=== PATIENT | female | born 1970 | race Hispanic/Latino ===

== ENCOUNTER 2018-02-26 11:04 | Emergency (ER) | payer MEDICAID, OTHER ==
[2018-02-26] MEDS ORDERED: METOCLOPRAMIDE 10 MG TABLET ONE (12:20)
[2018-02-26] MEDS ORDERED: ACETAMINOPHEN 325 MG TAB ONE (12:21)
[2018-02-26 12:27] LABS: BASOPHILS % (AUTO) 0.9 % (0.0-5.0); EOSINOPHILS % (AUTO) 3.9 % (0.0-8.0); HEMATOCRIT 37.4 % (36-48); LYMPHOCYTES % (AUTO) 24.8 % (21.0-51.0); MEAN CORPUSCULAR HEMOGLOBIN 28.5 pg (27.0-33.0); MEAN CORPUSCULAR HGB CONC 33.1 g/dL (32.0-36.0); MONOCYTES % (AUTO) 6.2 % (3.0-13.0); NEUTROPHILS % (AUTO) 64.2 % (40.0-77.0); PLATELET COUNT (AUTO) 188 K/uL (130-400); RED BLOOD CELL COUNT(AUTO) 4.35 MIL/uL (4.00-5.50); RED CELL DISTRIBUTION WIDTH 12.8 % (11.0-15.5); WHITE BLOOD COUNT (AUTO) 4.7 K/uL (4.8-10.8)
[2018-02-26 12:32] LABS: CREATININE 0.9 mg/dL (0.5-1.5); POTASSIUM 3.6 mmol/L (3.5-5.1)
[2018-02-26 12:37] LABS: ALBUMIN 3.5 g/dL (3.5-5.0); BILIRUBIN,TOTAL 0.5 mg/dL (0.2-1.0); TOTAL PROTEIN, SERUM 7.7 g/dL (6.0-8.3)
[2018-02-26 12:47] LABS: APPEARANCE,URINE Clear (CLEAR); BILIRUBIN,URINE Negative (NEGATIVE); COLOR,URINE Yellow (YELLOW); GLUCOSE, URINE (UA) Negative (NEGATIVE); KETONES,URINE Negative (NEGATIVE); LEUKOCYTE ESTERASE ,URINE Small (NEGATIVE); NITRATE,URINE Negative (NEGATIVE); OCCULT BLOOD,URINE Negative (NEGATIVE); PH,URINE 6.5 (5.0-8.0); PROTEIN,URINE Negative (NEGATIVE); UROBILINOGEN,URINE 0.2 mg/dL (0.2-1.0)
[2018-02-26 13:09] LABS: BACTERIA,URINE Rare /HPF (None Seen); RBC,URINE None Seen /HPF (0-1); SQUAMOUS EPITHELIAL CELL,UR 0-2 /HPF (0-2); WBC,URINE 0-1 /HPF (0-1)
== END 2018-02-26 13:46 | disposition home or self-care (01) ==
LOC: EDH 11:04
DX: R51 Headache (principal); R11.0 Nausea; H53.149 Visual discomfort, unspecified; I10 Essential (primary) hypertension
CPT/HCPCS: 36415; 70450; 80053; 81001; 84484; 85025; 93005

== ENCOUNTER 2019-03-31 13:06 | Inpatient (IN) | payer MEDICAID, OTHER ==
[~2019-03-31] VITALS: Ht 157.5 cm; Wt 120.3 kg
[2019-03-31 13:36] LABS: BASOPHILS % (AUTO) 0.5 % (0.0-5.0); EOSINOPHILS % (AUTO) 1.1 % (0.0-8.0); HEMATOCRIT 41.6 % (36-48); LYMPHOCYTES % (AUTO) 7.3 % (21.0-51.0); MEAN CORPUSCULAR HEMOGLOBIN 29.8 pg (27.0-33.0); MEAN CORPUSCULAR HGB CONC 34.5 g/dL (32.0-36.0); MEAN CORPUSCULAR VOLUME 86.3 fL (79-99); MONOCYTES % (AUTO) 4.3 % (3.0-13.0); NEUTROPHILS % (AUTO) 86.8 % (40.0-77.0); NUCLEATED RED BLOOD CELLS 0.1 % (0.0-0.19); PLATELET COUNT (AUTO) 198 K/uL (130-400); RED BLOOD CELL COUNT(AUTO) 4.81 MIL/uL (4.00-5.50); RED CELL DISTRIBUTION WIDTH 12.7 % (11.0-15.5); WHITE BLOOD COUNT (AUTO) 9.3 K/uL (4.8-10.8)
[2019-03-31 13:42] LABS: CREATININE 0.9 mg/dL (0.5-1.5); POTASSIUM 4.1 mmol/L (3.5-5.1)
[2019-03-31 13:48] LABS: ALBUMIN 3.9 g/dL (3.5-5.0); BILIRUBIN,TOTAL 0.8 mg/dL (0.2-1.0); TOTAL PROTEIN, SERUM 8.1 g/dL (6.0-8.3)
[2019-03-31] MEDS ORDERED: ONDANSETRON HCL 4 MG/2 ML VIAL ONE ×2 (14:22→15:36)
[2019-03-31] MEDS ORDERED: SODIUM CHLORIDE 0.9% 1000ML 1,000 ML IV ONE (14:22)
[2019-03-31] MEDS ORDERED: LORAZEPAM 2 MG/ML 1 ML VIAL ONE (14:24)
[2019-03-31 14:52] LABS: APPEARANCE,URINE Clear (CLEAR); BILIRUBIN,URINE Negative (NEGATIVE); COLOR,URINE Yellow (YELLOW); GLUCOSE, URINE (UA) Negative (NEGATIVE); KETONES,URINE Negative (NEGATIVE); LEUKOCYTE ESTERASE ,URINE Moderate (NEGATIVE); NITRATE,URINE Negative (NEGATIVE); OCCULT BLOOD,URINE Negative (NEGATIVE); PH,URINE 5.5 (5.0-8.0); PROTEIN,URINE Negative (NEGATIVE)
[2019-03-31 15:03] LABS: BACTERIA,URINE Moderate /HPF (None Seen); RBC,URINE 0-1 /HPF (0-1)
[2019-03-31 15:04] LABS: SQUAMOUS EPITHELIAL CELL,UR Few /HPF (0-2)
[2019-03-31] MEDS ORDERED: ZOSYN 3.375GM+NS 50ML 50 ML IV ONE (15:36)
[2019-03-31] MEDS ORDERED: SODIUM CHLORIDE 0.9% 0 ML IV ONE (15:37)
[2019-03-31] MEDS ORDERED: GADODIAMIDE 10 MMOL/20 ML VIAL IV ONE (15:47)
[2019-03-31] MEDS ORDERED: ACETAMINOPHEN 325 MG TAB PO PRN ×2 (16:15)
[2019-03-31] MEDS ORDERED: HYDRALAZINE HCL 20 MG/ML VIAL IV PRN (16:15)
[2019-03-31 16:43] LABS: HEMOGLOBIN A1C 5.5 % (4.0-6.0)
[2019-03-31 18:00] VITALS: BP 149/91
--- NOTE | 2019-03-31 18:00 | NUR ---
ER ADMIT TO ROOM 328. ASSESSMENT DONE. NPO, STARTED ON IVF, KEEPS DOSING OFF. C/O OF SEVERE NAUSEA, NO EMESIS, VERY LITTLE HISTORY. TAKES 1 BP MED. DAUGHTER WILL BRING IN.
[2019-03-31] MEDS: SODIUM CHLORIDE 0.9% 1000ML 1,000 ML IV SCH (18:30)
[2019-03-31 20:00] VITALS: BP 181/94
--- NOTE | 2019-03-31 20:30 | NUR ---
AWARE OF MRCP RESULTS STATED TO JE PATIENT FOR ERCP VINNY BUSTAMANTE AWARE
[2019-03-31 20:51] VITALS: BP 144/73
[2019-03-31 21:10] LABS: BASOPHILS % (AUTO) 0.4 % (0.0-5.0); EOSINOPHILS % (AUTO) 0.3 % (0.0-8.0); HEMATOCRIT 37.6 % (36-48); LYMPHOCYTES % (AUTO) 11.1 % (21.0-51.0); MEAN CORPUSCULAR HEMOGLOBIN 30.1 pg (27.0-33.0); MEAN CORPUSCULAR HGB CONC 34.7 g/dL (32.0-36.0); MEAN CORPUSCULAR VOLUME 86.6 fL (79-99); MONOCYTES % (AUTO) 5.3 % (3.0-13.0); NEUTROPHILS % (AUTO) 82.9 % (40.0-77.0); PLATELET COUNT (AUTO) 179 K/uL (130-400); RED BLOOD CELL COUNT(AUTO) 4.34 MIL/uL (4.00-5.50); RED CELL DISTRIBUTION WIDTH 12.8 % (11.0-15.5); WHITE BLOOD COUNT (AUTO) 7.6 K/uL (4.8-10.8)
[2019-03-31 21:26] LABS: POTASSIUM 3.8 mmol/L (3.5-5.1)
[2019-03-31 21:27] LABS: INR 1.01 (0.85-1.15); PROTHROMBIN TIME 10.6 SEC (9.6-11.6)
[2019-03-31] MEDS ORDERED: LOSA50TA64 PO (22:21)
[2019-03-31] MEDS: ZOSYN 3.375GM+NS 50ML 50 ML IV SCH (22:45)
[2019-03-31] MEDS: FAMOTIDINE/PF 20 MG/2 ML VIAL IV SCH (22:46)
[2019-04-01] VITALS (24 sets, daily range): BP systolic 109–163; BP diastolic 58–98
[2019-04-01] MEDS: ZOSYN 3.375GM+NS 50ML 50 ML IV SCH ×3 (06:03→22:46)
[2019-04-01] MEDS ORDERED: INDOMETHACIN 50 MG SUPP.RECT RC SCH (10:30)
[2019-04-01] MEDS ORDERED: IOHEXOL-350 50ML VIAL IV ONE (11:25)
[2019-04-01] MEDS ORDERED: SUCCINYLCHOLINE 200MG/10ML SYR ONE (11:35)
[2019-04-01] MEDS ORDERED: FENTANYL CITRATE PF 50 MCG/1 ML 2ML VIAL ONE (11:36)
[2019-04-01] MEDS: ONDANSETRON HCL 4 MG/2 ML VIAL IV PRN ×2 (13:23→19:14)
[2019-04-01] MEDS: FAMOTIDINE/PF 20 MG/2 ML VIAL IV SCH (14:34)
--- NOTE | 2019-04-01 15:05 | NUR ---
PER DR. CARPENTER UNSUCCESSFUL ERCP CALL SX FOR IOC
--- NOTE | 2019-04-01 15:06 | NUR ---
DR. ROY AWARE OF FAILED ERCP, STATES WILL ROUND TONIGHT.
--- NOTE | 2019-04-01 15:30 | NUR ---
PER PACU NURSE CATA, PT COUGHING BLOOD AND HE WILL MONITOR BLEEDING.
--- NOTE | 2019-04-01 15:50 | NUR ---
ORNITHOLOGY TEACHER MOSES AWARE OF PT W/ LGI BLEED ORDERS ENTERED.
--- NOTE | 2019-04-01 15:53 | NUR ---
PT HAVING DARK RED LOOSE STOOLS ORDERS ENTERED.
--- NOTE | 2019-04-01 16:07 | NUR ---
MEETA STATES WILL SPEAK W/MANUELA RE; SX NO ORDERS AT THIS TIME, STATES HE WILL ALSO WAIT ON H/H AND CALL FOR ANY ORDERS EITHER TODAY OR TOMORROW.
[2019-04-01 16:08] LABS: HEMATOCRIT 31.8 % (36-48)
--- NOTE | 2019-04-01 16:13 | NUR ---
PT REMAINS HAVING BLOODY STOOLS, DR. CARPENTER PAGED H/H OF 10.7/21.8 FROM A 13.0/37.6. PER TECHNOLOGIES DIVISION CHAIR WILL CALL BACK.
--- NOTE | 2019-04-01 16:23 | NUR ---
SEPIDEH-FROM PAULINE'S OFFICE CALLED BACK RE; GI BLEED STATES FOR NOW JUST MONITOR PT CALL ME BACK WITH 10PM H/H LEVELS OR IF THERE IS A SIGNIFICANT CHANGE IN PATIENT STATUS OR V/S, H/H. AT PAGER [phone].
--- NOTE | 2019-04-01 18:44 | NUR ---
tom note met with patient and states resides athome with 14 yo son, states she independent with adls and ambulation, no dme. she drives. states her adult daughter Malinda assists as needed. she is caring for her 14yo son at home. states no dc needs. she goes to [facility] in [place] for md and meds. also has applied at the [facility] here in [place], states no dc needs. provided number to [facility] for possible suresh assist and provided list of local clinics and med assist programs. dc plan [place]. Addendum: 04/01/19 at 1847 by SANTIAGO MALHOTRA CM Amended: Links added.
[2019-04-01] MEDS: MEPERIDINE-PF 25 MG/ML SYG IV PRN (19:21)
[2019-04-01] MEDS ORDERED: PANTOPRAZOLE 40 MG/VIAL IVP SCH (21:00)
[2019-04-01] MEDS ORDERED: MORPHINE SULFATE 4 MG/1ML SYG ONE (22:35)
[2019-04-01] MEDS ORDERED: MORPHINE SULFATE 4 MG/1ML SYG IV PRN (22:45)
[2019-04-01] MEDS: SODIUM CHLORIDE 0.9% 1000ML 1,000 ML IV SCH (22:46)
[2019-04-02] VITALS (26 sets, daily range): BP systolic 121–163; BP diastolic 57–99
[2019-04-02] MEDS: MEPERIDINE-PF 25 MG/ML SYG IV PRN (01:23)
[2019-04-02 05:33] LABS: BASOPHILS % (AUTO) 0.2 % (0.0-5.0); HEMATOCRIT 27.6 % (36-48); LYMPHOCYTES % (AUTO) 9.6 % (21.0-51.0); MEAN CORPUSCULAR HGB CONC 34.8 g/dL (32.0-36.0); MEAN CORPUSCULAR VOLUME 86.4 fL (79-99); MONOCYTES % (AUTO) 3.9 % (3.0-13.0); NEUTROPHILS % (AUTO) 86.3 % (40.0-77.0); NUCLEATED RED BLOOD CELLS 0.1 % (0.0-0.19); PLATELET COUNT (AUTO) 167 K/uL (130-400); RED BLOOD CELL COUNT(AUTO) 3.19 MIL/uL (4.00-5.50); RED CELL DISTRIBUTION WIDTH 12.9 % (11.0-15.5); WHITE BLOOD COUNT (AUTO) 7.1 K/uL (4.8-10.8)
[2019-04-02 05:49] LABS: ALBUMIN 2.7 g/dL (3.5-5.0); BILIRUBIN,TOTAL 0.5 mg/dL (0.2-1.0); CREATININE 0.8 mg/dL (0.5-1.5); POTASSIUM 3.4 mmol/L (3.5-5.1); TOTAL PROTEIN, SERUM 6.3 g/dL (6.0-8.3)
[2019-04-02] MEDS: ZOSYN 3.375GM+NS 50ML 50 ML IV SCH ×3 (05:59→22:47)
--- NOTE | 2019-04-02 08:58 | NUR ---
[employer] IVP D/C BY PHARMACIST, WAS NOTIFIED TO CONTINUE PT HAD GI BLEED S/P ERCP. STATES WILL CONTINUE.
[2019-04-02] MEDS ORDERED: FAMOTIDINE/PF 20 MG/2 ML VIAL IV SCH (09:00)
[2019-04-02] MEDS ORDERED: IOHEXOL-350 50ML VIAL IV ONE (10:05)
[2019-04-02] MEDS: PANTOPRAZOLE 40 MG/VIAL IVP SCH ×2 (10:28→22:49)
[2019-04-02] MEDS: SODIUM CHLORIDE 0.9% 1000ML 1,000 ML IV SCH ×2 (10:28→22:49)
[2019-04-02] MEDS ORDERED: SUCCINYLCHOLINE 200MG/10ML SYR ONE (11:02)
[2019-04-02] MEDS ORDERED: PROPOFOL 10 MG/ML 20ML VIAL IV ONE (11:02)
[2019-04-02] MEDS ORDERED: EPINEPHRINE 1 MG/ML AMPULE ONE (11:42)
[2019-04-02] MEDS ORDERED: INDOMETHACIN 50 MG SUPP.RECT RC SCH (11:45)
--- NOTE | 2019-04-02 11:45 | NUR ---
DR. MANUELA VILLELA, PT IN PROCEDURE, STATES; WILL COME AND SEE PT TOMORROW NO SX TODAY, SINCE PT IS ALREADY IN PROCEDURE.
[2019-04-02] MEDS: ONDANSETRON HCL 4 MG/2 ML VIAL IV PRN (16:29)
[2019-04-02] MEDS: MORPHINE SULFATE 2 MG/ML 1ML SYG IV PRN ×2 (16:29→22:45)
[2019-04-03] VITALS (7 sets, daily range): BP systolic 122–145; BP diastolic 59–80
[2019-04-03] MEDS: ZOSYN 3.375GM+NS 50ML 50 ML IV SCH ×3 (04:50→21:46)
[2019-04-03] MEDS: SODIUM CHLORIDE 0.9% 1000ML 1,000 ML IV SCH ×2 (04:51→14:15)
[2019-04-03 05:22] LABS: BASOPHILS % (AUTO) 0.4 % (0.0-5.0); EOSINOPHILS % (AUTO) 0.5 % (0.0-8.0); HEMATOCRIT 25.7 % (36-48); LYMPHOCYTES % (AUTO) 15.6 % (21.0-51.0); MEAN CORPUSCULAR HEMOGLOBIN 29.7 pg (27.0-33.0); MEAN CORPUSCULAR HGB CONC 34.3 g/dL (32.0-36.0); MEAN CORPUSCULAR VOLUME 86.5 fL (79-99); MONOCYTES % (AUTO) 7.2 % (3.0-13.0); NEUTROPHILS % (AUTO) 76.3 % (40.0-77.0); PLATELET COUNT (AUTO) 172 K/uL (130-400); RED BLOOD CELL COUNT(AUTO) 2.97 MIL/uL (4.00-5.50); RED CELL DISTRIBUTION WIDTH 12.7 % (11.0-15.5); WHITE BLOOD COUNT (AUTO) 7.2 K/uL (4.8-10.8)
[2019-04-03 05:25] LABS: INR 1.08 (0.85-1.15); PROTHROMBIN TIME 11.3 SEC (9.6-11.6)
[2019-04-03 05:44] LABS: ALBUMIN 2.5 g/dL (3.5-5.0); BILIRUBIN,TOTAL 0.6 mg/dL (0.2-1.0); CREATININE 0.8 mg/dL (0.5-1.5); POTASSIUM 3.1 mmol/L (3.5-5.1); TOTAL PROTEIN, SERUM 5.9 g/dL (6.0-8.3)
[2019-04-03] MEDS: MORPHINE SULFATE 2 MG/ML 1ML SYG IV PRN ×2 (09:36→21:49)
[2019-04-03] MEDS: PANTOPRAZOLE 40 MG/VIAL IVP SCH ×2 (09:37→21:46)
--- NOTE | 2019-04-03 14:30 | NUR ---
DR. Erin CARPENTER CALLED UPDATE GIVEN WITH ORDER TO CALLED HIM OF HIDA SCAN RESULTS
[2019-04-04] MEDS: SODIUM CHLORIDE 0.9% 1000ML 1,000 ML IV SCH ×2 (01:35→14:23)
[2019-04-04 03:00] VITALS: BP 112/53
[2019-04-04 05:28] LABS: BASOPHILS % (AUTO) 0.3 % (0.0-5.0); EOSINOPHILS % (AUTO) 0.9 % (0.0-8.0); HEMATOCRIT 25.2 % (36-48); LYMPHOCYTES % (AUTO) 21.6 % (21.0-51.0); MEAN CORPUSCULAR HEMOGLOBIN 30.4 pg (27.0-33.0); MEAN CORPUSCULAR HGB CONC 34.7 g/dL (32.0-36.0); MEAN CORPUSCULAR VOLUME 87.7 fL (79-99); MONOCYTES % (AUTO) 8.6 % (3.0-13.0); NEUTROPHILS % (AUTO) 68.6 % (40.0-77.0); NUCLEATED RED BLOOD CELLS 0.1 % (0.0-0.19); PLATELET COUNT (AUTO) 185 K/uL (130-400); RED BLOOD CELL COUNT(AUTO) 2.88 MIL/uL (4.00-5.50); RED CELL DISTRIBUTION WIDTH 12.8 % (11.0-15.5); WHITE BLOOD COUNT (AUTO) 8.8 K/uL (4.8-10.8)
[2019-04-04] MEDS: ZOSYN 3.375GM+NS 50ML 50 ML IV SCH ×3 (05:34→22:54)
[2019-04-04 06:06] LABS: ALBUMIN 2.6 g/dL (3.5-5.0); BILIRUBIN,TOTAL 0.8 mg/dL (0.2-1.0); TOTAL PROTEIN, SERUM 6.4 g/dL (6.0-8.3)
[2019-04-04 06:32] LABS: POTASSIUM 2.8 mmol/L (3.5-5.1)
[2019-04-04] MEDS: POTASSIUM CHLORIDE 20MEQ/100ML 100 ML IV PRN ×3 (07:54→14:25)
[2019-04-04] MEDS: LIDOCAINE HCL-MPF 1% 2ML VIAL IV PRN ×3 (07:54→14:25)
[2019-04-04 08:00] VITALS: BP 144/94
[2019-04-04] MEDS: PANTOPRAZOLE 40 MG/VIAL IVP SCH ×2 (10:33→22:54)
[2019-04-04 11:59] VITALS: BP 147/94
[2019-04-04] MEDS ORDERED: MAGNESIUM 2GM PREMIX 50ML 50 ML IV PRN (14:45)
[2019-04-04 16:00] VITALS: BP 158/92
--- NOTE | 2019-04-04 17:22 | NUR ---
PT BACK FROM THE HIDA SCAN .PENDING . 2 PART. BACK TO ROOM . PER STAFF . PT NEED TO GO BACK FOR 2ND SESSION
[2019-04-04 19:00] VITALS: BP 126/63
[2019-04-04] MEDS: MEPERIDINE-PF 25 MG/ML SYG IV PRN (22:53)
[2019-04-04 23:00] VITALS: BP 140/63
[2019-04-05] MEDS: MORPHINE SULFATE 2 MG/ML 1ML SYG IV PRN (02:23)
[2019-04-05 03:00] VITALS: BP 128/74
[2019-04-05] MEDS: ZOSYN 3.375GM+NS 50ML 50 ML IV SCH ×3 (04:48→23:06)
[2019-04-05 06:24] LABS: BASOPHILS % (AUTO) 0.7 % (0.0-5.0); EOSINOPHILS % (AUTO) 1.5 % (0.0-8.0); HEMATOCRIT 22.8 % (36-48); MEAN CORPUSCULAR HEMOGLOBIN 29.6 pg (27.0-33.0); MEAN CORPUSCULAR HGB CONC 34.5 g/dL (32.0-36.0); MEAN CORPUSCULAR VOLUME 85.8 fL (79-99); MONOCYTES % (AUTO) 7.6 % (3.0-13.0); NEUTROPHILS % (AUTO) 69.2 % (40.0-77.0); NUCLEATED RED BLOOD CELLS 0.1 % (0.0-0.19); PLATELET COUNT (AUTO) 174 K/uL (130-400); RED BLOOD CELL COUNT(AUTO) 2.65 MIL/uL (4.00-5.50); RED CELL DISTRIBUTION WIDTH 12.7 % (11.0-15.5); WHITE BLOOD COUNT (AUTO) 6.1 K/uL (4.8-10.8)
[2019-04-05 06:45] LABS: ALBUMIN 2.3 g/dL (3.5-5.0); BILIRUBIN,TOTAL 0.5 mg/dL (0.2-1.0); CREATININE 0.7 mg/dL (0.5-1.5); MAGNESIUM 1.7 mg/dL (1.80-2.40); TOTAL PROTEIN, SERUM 6.1 g/dL (6.0-8.3)
[2019-04-05 06:47] LABS: POTASSIUM 2.8 mmol/L (3.5-5.1)
[2019-04-05] MEDS: POTASSIUM CHLORIDE 20MEQ/100ML 100 ML IV PRN (07:28)
[2019-04-05] MEDS: D5 NS WITH 20 mEq KCl 1000ML IV SCH (07:37)
[2019-04-05 08:00] VITALS: BP 130/70
[2019-04-05] MEDS: PANTOPRAZOLE 40 MG/VIAL IVP SCH ×2 (09:39→23:06)
[2019-04-05] MEDS ORDERED: KETOROLAC TROMETHAMINE 15MG/ML IV PRN (10:30)
[2019-04-05 12:00] VITALS: BP 144/81
--- NOTE | 2019-04-05 14:43 | NUR ---
DR. KARLEY CARPENTER WAS CALLED OF THE HIDA SCAN RESULTS .WITH COMMUNICATION OF SIGN OFF THE CASE, CONSULTION AND WILL SEE PT . IF NEEDED .
--- NOTE | 2019-04-05 15:30 | NUR ---
VANE L[place]IS . Fausto WAS HERE AND SPOKE WITH PT OF HER HIDA SCAN . . RESULTS AND NEEDED LAP CHOL SURGERY .QUESTION REVIEW WITH ORDERS TO FOLLOW
--- NOTE | 2019-04-05 15:40 | NUR ---
REVIEW LABS . OF HGB , 7.9 NO ACTIVE BLEEDING NOTE PT HAD SM BROWNISH BM. LOOSE . 2.8 AND IS COVER WITH THE HYPOKALEMIA PROTOCOL ON CL LIQ . AND WILL BE NPO AFTER MIDNITE .
[2019-04-05 16:00] VITALS: BP 126/71
[2019-04-05 20:00] VITALS: BP 132/66
--- NOTE | 2019-04-05 22:00 | NUR ---
PATIENT NOT WANTING LAP JOSE FRANCISCO PATIENT STATES SHE DOES NOT WANT TO GO THROUGH WITH THE PROCEDURE. SHE STATES SHE HAS NOT HAD ANY PAIN AND DOES NOT SEE THE PROCEDURE TO BE NECESSARY AT THIS TIME. INFORMED THE PATIENT I WOULD CALL THE SURGEON TO NOTIFY HIM OF HER REQUEST. DR. ROY INFORMED. SAID TO PLACE THE PATIENT ON A LOW FAT DIET AND HE WOULD BE IN TO SEE THE PT IN THE AM. METER RECORD CLERK INFORMED OF THE SITUATION.
[2019-04-05] MEDS: GUAIFENESIN 600 MG TABLET.ER PO SCH (23:05)
[2019-04-05 23:55] VITALS: BP 121/61
[2019-04-06] MEDS: D5 NS WITH 20 mEq KCl 1000ML IV SCH (03:48)
[2019-04-06 03:56] VITALS: BP 123/66
[2019-04-06 04:51] LABS: HEMATOCRIT 22.4 % (36-48); MEAN CORPUSCULAR HEMOGLOBIN 29.8 pg (27.0-33.0); MEAN CORPUSCULAR HGB CONC 34.6 g/dL (32.0-36.0); MEAN CORPUSCULAR VOLUME 86.1 fL (79-99); NUCLEATED RED BLOOD CELLS 0.1 % (0.0-0.19); PLATELET COUNT (AUTO) 185 K/uL (130-400); WHITE BLOOD COUNT (AUTO) 4.9 K/uL (4.8-10.8)
[2019-04-06 05:03] LABS: CREATININE 0.8 mg/dL (0.5-1.5)
[2019-04-06] MEDS: ZOSYN 3.375GM+NS 50ML 50 ML IV SCH (05:36)
[2019-04-06 05:40] LABS: POTASSIUM 2.8 mmol/L (3.5-5.1)
[2019-04-06] MEDS: POTASSIUM CHLORIDE 20MEQ/100ML 100 ML IV PRN (05:43)
--- NOTE | 2019-04-06 08:02 | NUR ---
DR ROY CAME TO SEE PT. PATIENT STATES SHE DOES NOT WANT TO GO TO SURGERY. DR ROY EXPLAINED THAT THE PAIN MAY COME BACK IF SHE EATS REGULAR FOOD, BUT FROM HIS STAND POINT PT MAY F/U IN HIS OFFICE AND GO HOME ON ANTIBIOTICS.
[2019-04-06 08:34] VITALS: BP 112/58
[2019-04-06] MEDS: GUAIFENESIN 600 MG TABLET.ER PO SCH (08:35)
[2019-04-06] MEDS: PANTOPRAZOLE 40 MG/VIAL IVP SCH (08:35)
[2019-04-06] MEDS ORDERED: TRAM50TA4 PO (10:29)
[2019-04-06] MEDS ORDERED: FAMO40TA75 PO (10:29)
[2019-04-06] MEDS ORDERED: AMOX-429 PO (10:29)
[2019-04-06] MEDS ORDERED: POTASSIUM CHLORIDE 20 MEQ ERTAB PO SCH ×2 (10:30→13:30)
[2019-04-06] MEDS ORDERED: DEXAMETHASONE SOD PHOSPHATE 10MG/ML 1ML VIAL ONE (11:25)
[2019-04-06] MEDS ORDERED: LIDOCAINE PF 2% 5ML ABBOJECT ONE (11:25)
[2019-04-06] MEDS ORDERED: FLU VACC QS2019-20 36MOS UP/PF 60 MCG/0.5 ML ML IM ONE (12:45)
== END 2019-04-06 13:35 | disposition home or self-care (01) | DRG 445 ==
LOC: EDH 13:06 → EDHIP 13:07 → 3DH 18:03
PROVIDERS: ADMIT Internal Medicine; ATTEND Internal Medicine
PROC: 0FJB8ZZ Inspection of Hepatobiliary Duct, Via Natural or Artificial Opening Endoscopic (ICD-10-PCS; principal; 2019-04-01)
PROC: BF141ZZ Fluoroscopy of Gallbladder, Bile Ducts and Pancreatic Ducts using Low Osmolar Contrast (ICD-10-PCS; 2019-04-01)
PROC: 0FJB8ZZ Inspection of Hepatobiliary Duct, Via Natural or Artificial Opening Endoscopic (ICD-10-PCS; 2019-04-02)
PROC: BF141ZZ Fluoroscopy of Gallbladder, Bile Ducts and Pancreatic Ducts using Low Osmolar Contrast (ICD-10-PCS; 2019-04-02)
PROC: 3E02340 Introduction of Influenza Vaccine into Muscle, Percutaneous Approach (ICD-10-PCS; 2019-04-06)
DX: K80.70 Calculus of gallbladder and bile duct without cholecystitis without obstruction (principal); N39.0 Urinary tract infection, site not specified; Z68.42 Body mass index [BMI] 45.0-49.9, adult; K76.0 Fatty (change of) liver, not elsewhere classified; B96.20 Unspecified Escherichia coli [E. coli] as the cause of diseases classified elsewhere; R16.2 Hepatomegaly with splenomegaly, not elsewhere classified; E66.01 Morbid (severe) obesity due to excess calories; E87.6 Hypokalemia; I10 Essential (primary) hypertension; J06.9 Acute upper respiratory infection, unspecified; K83.8 Other specified diseases of biliary tract; Z23 Encounter for immunization
CPT/HCPCS: 36415; 43235; 43262; 71045; 74018; 74183; 74330; 76705; 78226; 80048; 80053; 81001; 83036; 83690; 83735; 84132; 84145; 84484; 85014; 85018; 85025; 85027; 85610; 87040; 87077; 87088; 87186; 93005; A9537; A9579; C1769; C9113; G0008; G0378; J0171; J0330; J0360; J1100; J2001; J2060; J2175; J2270; J2405; J2543; J2704; J3010; J3475; J3480; J3490; J7030; Q2035; Q9967

== ENCOUNTER 2020-02-20 14:14 | Emergency (ER) | payer MEDICAID, OTHER ==
[~2020-02-20 14:14] MED LIST: AMOX-429 PO; FAMO40TA75 PO; LOSA50TA64 PO; TRAM50TA4 PO
[2020-02-20] MEDS ORDERED: HYDROCODONE/ACETAMINOPHEN 10/325 MG TAB ONE (14:48)
== END 2020-02-20 15:39 | disposition home or self-care (01) ==
LOC: EDH 14:14
DX: L98.0 Pyogenic granuloma (principal); I10 Essential (primary) hypertension; Z79.899 Other long term (current) drug therapy; Z98.890 Other specified postprocedural states
CPT/HCPCS: 99282

== ENCOUNTER 2020-05-06 13:54 | Emergency (ER) | payer MEDICAID, OTHER ==
[2020-05-06 14:13] LABS: APPEARANCE,URINE Clear (CLEAR); BILIRUBIN,URINE Negative (NEGATIVE); COLOR,URINE Yellow (YELLOW); GLUCOSE, URINE (UA) Negative (NEGATIVE); KETONES,URINE Negative (NEGATIVE); LEUKOCYTE ESTERASE ,URINE Moderate (NEGATIVE); NITRATE,URINE Negative (NEGATIVE); OCCULT BLOOD,URINE Negative (NEGATIVE); PROTEIN,URINE Negative (NEGATIVE); UROBILINOGEN,URINE 0.2 mg/dL (0.2-1.0)
[2020-05-06 14:24] LABS: BACTERIA,URINE Rare /HPF (None Seen); RBC,URINE 0-1 /HPF (0-1); SQUAMOUS EPITHELIAL CELL,UR Rare /HPF (0-2)
[2020-05-06] MEDS ORDERED: ONDANSETRON HCL 4 MG/2 ML VIAL ONE (14:24)
[2020-05-06] MEDS ORDERED: SODIUM CHLORIDE 0.9% 1000ML 1,000 ML IV ONE (14:24)
[2020-05-06 14:29] LABS: BASOPHILS % (AUTO) 0.5 % (0.0-5.0); EOSINOPHILS % (AUTO) 2.1 % (0.0-8.0); HEMATOCRIT 38.2 % (36-48); LYMPHOCYTES % (AUTO) 22.5 % (21.0-51.0); MEAN CORPUSCULAR HEMOGLOBIN 26.9 pg (27.0-33.0); MEAN CORPUSCULAR HGB CONC 32.2 g/dL (32.0-36.0); MEAN CORPUSCULAR VOLUME 83.4 fL (79-99); MONOCYTES % (AUTO) 6.3 % (3.0-13.0); NEUTROPHILS % (AUTO) 67.8 % (40.0-77.0); PLATELET COUNT (AUTO) 230 K/uL (130-400); RED BLOOD CELL COUNT(AUTO) 4.58 MIL/uL (4.00-5.50); RED CELL DISTRIBUTION WIDTH 13.2 % (11.0-15.5); WHITE BLOOD COUNT (AUTO) 6.3 K/uL (4.8-10.8)
[2020-05-06 14:46] LABS: CREATININE 1.2 mg/dL (0.5-1.5); POTASSIUM 3.6 mmol/L (3.5-5.1)
[2020-05-06 14:50] LABS: ALBUMIN 3.7 g/dL (3.5-5.0); BILIRUBIN,TOTAL 0.6 mg/dL (0.2-1.0); TOTAL PROTEIN, SERUM 8.4 g/dL (6.0-8.3)
[2020-05-06] MEDS ORDERED: FAMOTIDINE 20MG TAB 20 MG TAB ONE (14:50)
[2020-05-06] MEDS ORDERED: MAGNESIUM HYDROXIDE 30 ML/UDCUP ONE (14:50)
[2020-05-06] MEDS ORDERED: LIDOCAINE HCL 2% VISCOUS 15 ML UDCUP ONE (14:50)
== END 2020-05-06 15:50 | disposition home or self-care (01) ==
LOC: EDH 13:54
DX: K29.70 Gastritis, unspecified, without bleeding (principal); R74.8 Abnormal levels of other serum enzymes; E11.9 Type 2 diabetes mellitus without complications; I10 Essential (primary) hypertension; E66.9 Obesity, unspecified; Z79.899 Other long term (current) drug therapy; Z98.890 Other specified postprocedural states; Z68.42 Body mass index [BMI] 45.0-49.9, adult
CPT/HCPCS: 36415; 80053; 81001; 82150; 83690; 84484; 85025; 87077; 87088; 87186; 93005; 96361; 96374; 99284; J2405; J7030